=== PATIENT | female | born 1975 | race Caucasian/White ===

== ENCOUNTER 2024-12-01 15:15 | Inpatient (IN) | payer BC ==
[2024-12-01] MEDS ORDERED: Acetaminophen 325 MG TAB PO PRN (18:10)
[2024-12-01] MEDS ORDERED: Ondansetron ODT 4 MG TAB PO PRN (18:10)
[2024-12-01] MEDS ORDERED: Acetaminophen 650 MG Suppository PR PRN (18:10)
[2024-12-01] MEDS: Lactated Ringer's 1,000 ML IV SCH (18:25)
[2024-12-01 19:47] LABS: #Basophils 0.04 10x3/uL (0.0-0.2); %Basophils 0.5 % (0.0-1.0); %Eosinophils 1.1 % (0.0-10.0); %Lymphocytes 21.8 % (21.0-51.0); %Monocytes 6.6 % (0.0-10.0); %Neutrophils 69.6 % (42.0-75.0); Hematocrit 33.4 % (36.0-47.0); Hemoglobin 11.5 g/dL (12.0-16.0); Mean Corpuscular HGB CONC 34.4 g/dL (32.0-36.0); Mean Corpuscular Hemoglobin 30.7 pg (27.0-31.0); Mean Corpuscular Volume 89.3 fL (78.0-98.0); Mean Platelet Volume 9.2 fL (7.4-10.4); Platelet Count 222 10x3/uL (130-400); RBC Distribution Width 12.4 % (11.5-14.5); Red Blood Cell (RBC) Count 3.74 mill/uL (4.20-5.40)
[2024-12-01 20:01] LABS: Alcohol Less than 10.0 mg/dL (Less than 10)
[2024-12-01 20:12] LABS: ALT (SGPT) 150 U/L (8-55); AST (SGOT) 117 U/L (5-34); Albumin 2.9 g/dL (3.5-5.0); Alkaline Phosphatase 77 U/L (40-110); Anion Gap 9 mmol/L (10-20); BUN (Urea Nitrogen) 7 mg/dL (7.0-18.7); Bilirubin, Total 0.5 mg/dL (0.2-1.2); Calc. Creatinine Clearance 0 mL/min (70-130); Calcium 7.9 mg/dL (7.8-10.44); Carbon Dioxide 21 mmol/L (22-29); Cardiac Risk 2.8 (Less than 4.5); Chloride 112 mmol/L (98-107); Cholesterol 118 mg/dl (< 200 Desired); Estimated GFR 116; Globulin 2.7 g/dL (2.4-3.5); Glucose 74 mg/dL (70-105); HDL Cholesterol 42 mg/dL (>60 Neg Risk); LDL Cholesterol, Calculated 60 mg/dL; Magnesium 1.8 mg/dL (1.6-2.6); Potassium 3.4 mmol/L (3.5-5.1); Protein, Total 5.6 g/dL (6.0-8.3); Sodium 139 mmol/L (136-145); Triglycerides 80 mg/dL (Less than 150)
[2024-12-01 20:21] LABS: Lipase 834 U/L (8-78)
[2024-12-01 20:56] VITALS: BMI 28.1
[2024-12-01] MEDS: Sertraline 100 MG TAB PO SCH (20:58)
[2024-12-01] MEDS: Morphine 2 MG/ML VIAL SLOW IVP PRN (20:58)
[2024-12-01] MEDS: busPIRone HCl 10 MG TAB PO SCH (20:58)
[2024-12-01] MEDS: Metoprolol Succinate XL 50 MG ER.TAB PO SCH (20:58)
[2024-12-01] MEDS: Ondansetron PF 4 MG/2 ML Vial IVP PRN (20:58)
[2024-12-01] MEDS: Famotidine 20 MG TAB PO SCH (21:02)
[2024-12-01] MEDS ORDERED: Electrolyte Replacement Protocol 1 EACH FS SCH (21:30)
[2024-12-01] MEDS: Magnesium 2 GM/50 ML(in water) 2 GM in Premix 1 BAG IVPB SCH (21:49)
[2024-12-01] MEDS: Potassium Chloride 20 MEQ in Premix 1 BAG IVPB SCH (21:49)
[2024-12-02] MEDS: Ketorolac Tromethamine 30 MG (1 mL) VIAL IVP PRN (05:20)
[2024-12-02 07:59] LABS: ALT (SGPT) 121 U/L (8-55); AST (SGOT) 73 U/L (5-34); Albumin 2.9 g/dL (3.5-5.0); Alkaline Phosphatase 80 U/L (40-110); Anion Gap 7 mmol/L (10-20); BUN (Urea Nitrogen) 5 mg/dL (7.0-18.7); Bilirubin, Total 0.5 mg/dL (0.2-1.2); Calc. Creatinine Clearance 174 mL/min (70-130); Carbon Dioxide 26 mmol/L (22-29); Chloride 109 mmol/L (98-107); Estimated GFR 114; Glucose 78 mg/dL (70-105); Potassium 3.8 mmol/L (3.5-5.1); Protein, Total 5.9 g/dL (6.0-8.3); Sodium 138 mmol/L (136-145)
[2024-12-02] MEDS: Lactated Ringer's 1,000 ML IV SCH (09:47)
[2024-12-02] MEDS: Metoprolol Succinate XL 50 MG ER.TAB PO SCH (09:47)
[2024-12-02] MEDS: busPIRone HCl 10 MG TAB PO SCH (09:47)
[2024-12-02] MEDS: Enoxaparin 40 MG (0.4 mL) SYRINGE SC SCH (09:48)
[2024-12-02] MEDS: Ibuprofen 200 MG TAB PO PRN (14:38)
[2024-12-02] MEDS: Sertraline 100 MG TAB PO SCH (17:09)
[2024-12-03] MEDS: Sertraline 100 MG TAB PO SCH (09:10)
[2024-12-03 13:21] VITALS: BP 131/85; TEMP 99.1
== END 2024-12-03 13:39 | disposition home or self-care (01) | DRG 444 ==
LOC: UNDOADMIN 15:15 → SURG B 15:15 → UNDODISIN 12-03 13:39
PROVIDERS: ADMIT Internal Medicine; ATTEND Internal Medicine
DX: K80.20 Calculus of gallbladder without cholecystitis without obstruction (principal); K85.90 Acute pancreatitis without necrosis or infection, unspecified; I10 Essential (primary) hypertension; E78.5 Hyperlipidemia, unspecified; F42.9 Obsessive-compulsive disorder, unspecified; R74.01 Elevation of levels of liver transaminase levels; F12.90 Cannabis use, unspecified, uncomplicated; Z79.899 Other long term (current) drug therapy
CPT/HCPCS: 36415; 80053; 80061; 80307; 83690; 83735; 85025; J1885; J2272; J2405; J3475; J3480; J7120